=== PATIENT | male | born 1990 | race African-American/Black ===

== ENCOUNTER 2023-10-21 10:13 | Outpatient (AMB) | payer OTHER, SELFPAY ==
[2023-10-21 10:14] VITALS: BP 138/88; PULSE 96; TEMP 37.7; O2SAT 100; BMI 32.9
--- NOTE | 2023-10-21 10:14 | AM.OFFWIN_ITS ---
Intake Vital Signs 10/21/23 10:14 Height 5 ft 7 in Weight 210 lb BMI 32.9 BP 138/88 Blood Pressure Location Rt brachial Position Sitting Pulse 96 Pulse Source Pulse Oximeter Temp 100 F Temp Source Oral Pulse Oximetry (%) 100 Oxygen Delivery Method Room Air Intake Visit Reasons: SUPPLY TECH Head/chest congestion, weak/head throbbing Intake Note: Pt c/o chest congestion, weak and head throbbing with nausea and pain legs pain: started this morning Allergies No Known Allergies Allergy (Verified 10/21/23 10:14) Medication List - Last Reconciled 10/21/23 by Tanesha Matias, OBSTETRICS GYNECOLOGY MD-BC benzonatate 100 mg PO TID PRN 10 days ibuprofen 800 mg PO Q8H PRN ondansetron HCl 4 mg PO Q8H PRN 3 days HPI HPI Comments History of Present Illness Details 33-year-old male here today with flu-lik e symptoms. He reports that he has sudden onset of fever, chills, headache, cough, chest congestion and body aches this morning. He is not taking any medications to try to remedy his symptoms. He also has some mild nausea. He is able to tolerate water. Overall he does feels weak and ill. He denies any known sick contacts. Exam Awake alert, mildly ill-appearing but no acute distress Sclera and conjunctiva clear bilat, no photophobia No nuchal rigidity Nares patent, turbinates within normal limits, no sinus tenderness with palpation bilat TM intact and clear bilat MMM, pharynx WNL RRR LS CTAB, occasional cough noted during exam Plan Swab for flu and COVID. Treat body aches with ibuprofen alternating with Tylenol. [place] hydration and diet as tolerated. Zofran for nausea. Tessalon for cough. If flu positive recommend sending in prescription for Tamiflu. COVID positive he is open to PAXLOVID Ondansteron and APAP given at time of visit to help alleviate Sx. At 1450 pt called with + COVID results; Rx for Paxlovid sent in to pharmacy. This note is constructed using voice recognition software. While every effort has been made to ensure accuracy in public policy manager, still errors may have been included Sometimes, these errors may affect the content or meaning of the given sentence . Total time spent caring for the patient today was 30 minutes. This includes time spent before the visit reviewing the chart, time spent during the visit, and time spent after the visit on documentation Physical Exam Vital Signs: Last Vital Signs Temp 100 F 10/21/23 10:14 Pulse 96 10/21/23 10:14 BP 138/88 10/21/23 10:14 Pulse Ox 100 10/21/23 10:14 Oxygen Delivery Method Room Air 10/21/23 10:14 BMI result Body Mass Index 32.9 Office Meds acetaminophen 325 mg tablet Performing Provider: CRISTELA Fay Performing Location: [facility] Administered by: CRISTELA Fay on 10/21/23 11:10 Dose Route Admin Location Dispensed Lot Number Expiration Date [facility] [employer] 325 mg PO 325 mg [id number] 10/14/25 0373-9046-28 [employer] ondansetron 4 mg disintegrating tablet Performing Provider: CRISTELA Fay Performing Location: [facility] Administered by: CRISTELA Fay on 10/21/23 11:10 Dose Route Admin Location Dispensed Lot Number Expiration Date [facility] [employer] 4 mg translingual 1 tab [id number] 10/14/26 [employer] Results Reviewed Results Reviewed: [facility] [address] [place] [id number] [employer] Supervisor: Slim Trevino M.D. Specimen Inquiry Name: Daniel Dahlah Guy Age/Sex: 33/M : 1990 Unit#: [id number] Attend Dr: Tanesha Matias Re10/21/23 Status: REG REF Location: [facility] Disch: SPEC : [id number] ARSENIO: 10/21/23-1013 STATUS: COMP REQ : [id number] RECD: 10/21/[address] [facility] [address]: Tanesha Matias [facility]- COMP: 10/21/23 ENTERED: 10/21/23 [facility] DR: ORDERED: SARS/FLU/RSV Test Result Flag Reference Influenza A PCR NEGATIVE Negative Influenza B PCR NEGATIVE Negative RSV RNA QualPCR NEGATIVE Negative SARSCOV2 RT-PCR POSITIVE A Negative All test results must be correlated with clinical findings. Negative results do not preclude SARS-CoV2, influenza A virus, influenza B virus and/or RSV infection and should not be used as the sole basis for treatment or other patient management decisions. Negative results must be combined with clinical observations, patient history, and epidemiological information. This test has not been evaluated for monitoring treatment of infection. This test has been authorized by the FDA under an Emergency Use Authorization (EUA) for use by authorized labo ratories. Testing performed on the [employer] GeneXpert utilizing real-time RT-PCR. All SARS CoV2 and positive influenza A/B results are reported to [facility]. END OF REPORT Assessment & Plan Assessment & Plan (1) Flu-like symptoms: Code(s): R68.89 - Other general symptoms and signs (2) Nausea: Code(s): R11.0 - Nausea (3) COVID-19: Code(s): U07.1 - COVID-19 Plan: . Plan . Orders: Orders AMB Ondansetron Adult Dose Today R11.0 - Nausea SARS-CoV2/FLU/RSV Today R09.89 - Other specified symptoms and signs involving the circulatory and respiratory systems AMB Acetaminophen Adult Dose Today R68.89 - Other general symptoms and signs Medications: New benzonatate 100 mg PO TID 10 days PRN 30 caps 1RF cough ondansetron HCl 4 mg PO Q8H 3 days PRN 15 tabs 0RF nausea and vomiting nirmatrelvir-ritonavir 300 mg (150 mg x 2)-100 mg (Paxlovid) take TWO 150 mg tablets of nirmatrelvir with ONE 100 mg tablet of ritonavir twice daily for 5 days PO 30 ea 0RF ibuprofen 800 mg PO Q8H PRN 30 tabs 0RF pain or fever Patient Instructions: Isolation and Precautions for People with COVID-19 Updated June 23, 2022 If you were exposed to COVID-19, you should start taking precautions. Isolation and Exposure If you have COVID-19, you can spread the virus to others. There are precautions you can take to prevent spreading it to others: isolation, masking, and avoiding contact with people who are at high risk of getting very sick. Isolation is used to separate people with confirmed or suspected COVID-19 from those without COVID-19. These recommendations do not change based on COVID-19 hospital admission levels. If you have COVID-19, also see additional information on treatments that may be available to you. This information is intended for a general audience. Healthcare professionals should see Ending Isolation and Precautions for People with COVID-19. This [facility] g uidance is meant to supplement?not replace?any federal, state, local, territorial, or [place] health and safety laws, rules, and regulations. For Healthcare Professionals: Ending Isolation and Precautions for People with COVID-19 When to Isolate Regardless of vaccination status, you should isolate from others when you have COVID-19. You should also isolate if you are sick and suspect that you have COVID-19 but do not yet have test results. If your results are positive, follow the full isolation recommendations below. If your results are negative, you can end your isolation. IF YOU TEST Negative You can end your isolation IF YOU TEST Positive Follow the full isolation recommendations below When you have COVID-19, isolation is counted in days, as follows: If you had no symptoms Day 0 is the day you were tested (not the day you received your positive test result) Day 1 is the first full day following the day you were tested If you develop symptoms within 10 days of when you were tested, the clock restarts at day 0 on the day of symptom onset If you had symptoms Day 0 of isolation is the day of symptom onset, regardless of when you tested positive Day 1 is the first full day after the day your symptoms started Isolation If you test positive for COVID-19, stay home for at least 5 days and isolate from others in your home. You are likely most infectious during these first 5 days. Wear a high-quality mask if you must be around others at home and in public. Do not go places where you are unable to wear a mask. For travel guidance, see CDC?s Travel webpage. Do not travel. Stay home and separate from others as much as possible. Use a separate bathroom, if possible. Take steps to improve ventilation at home, if possible. Don?t share personal household items, like cups, towels, and utensils. Monitor your symptoms. If you have an emergency warning sign (like trouble breathing), seek emergency medical care immediately. Learn more about what to do if you have COVID-19. Ending Isolation End isolation based on how serious your COVID-19 symptoms were. Loss of taste and smell may persist for weeks or months after recovery and need not delay the end of isolation. If you had no symptoms You may end isolation after day 5. If you had symptoms and: Your symptoms are improving You may end isolation after day 5 if: You are fever-free for 24 hours (without the use of fever-reducing medication). Your symptoms are not improving Continue to isolate until: You are fever-free for 24 hours (without the use of fever-reducing medication). Your symptoms are improving. 1 If you had symptoms and had: Moderate illness (you experienced shortness of breath or had difficulty breathing) You need to isolate through day 10. Severe illness (you were hospitalized) or have a weakened immune system You need to isolate through day 10. Consult your doctor before ending isolation. Ending isolation without a viral test may not be an option for you. If you are unsure if your symptoms are moderate or severe or if you have a weakened immune system, talk to a healthcare provider for further guidance. Regardless of when you end isolation Until at least day 11: Avoid being around people who are more likely to get very sick from COVID-19. Remember to wear a high-quality mask when indoors around others at home and in public. Do not go places where you are unable to wear a mask until you are able to discontinue masking (see below). For travel guidance, see CDC?s Travel webpage. Removing Your Mask After you have ended isolation, when you are feeling better (no fever without the use of fever-reducing medications and symptoms improving), Wear your mask through day 10. OR If you have access to antigen tests, you should consider using them. With two sequential negative tests 48 hours apart, you may remove your mask sooner than day 10. Note: If your antigen test results1 are positive, you may still be infectious. You should continue wearing a mask and wait at least 48 hours before taking another test. Continue taking antigen tests at least 48 hours apart until you have two sequential negative results. This may mean you need to continue wearing a mask and testing beyond day 10. After you have ended isolation, if your COVID-19 symptoms recur or worsen, restart your isolation at day 0. Talk to a healthcare provider if you have questions about your symptoms or when to end isolation. [1] As noted in the Food and Drug Administration labeling for authorized txux-sdr-eivarmx antigen tests, negative test results do not rule out SARS-CoV-2 infection and should not be used as the sole basis for treatment or patient management decisions, including infection control decisions. Last Updated June 23, 2022 Coding Level of Care Code Est Pt Level 4 (85918) Diagnoses Flu-like symptoms R68.89 Nausea R11.0 COVID-19 U07.1
== END 2023-10-21 10:41 | disposition home or self-care (01) ==
PROVIDERS: Visit Provider Nurse Practitioner Family
DX: R11.0 Nausea (principal); U07.1 COVID-19; R68.89 Other general symptoms and signs
CPT/HCPCS: 99051; 99214

== ENCOUNTER 2023-10-21 13:23 | Outpatient (REF) | payer OTHER, SELFPAY ==
[2023-10-21 14:31] LABS: Influenza A PCR NEGATIVE (Negative); Influenza B PCR NEGATIVE (Negative); Resp Syncy Virus RNA Qual PCR NEGATIVE (Negative); SARS COV2 PCR INHOUSE POSITIVE (Negative)
== END 2023-10-21 13:24 | disposition home or self-care (01) ==
LOC: HO.HMGCLNP 13:23
PROVIDERS: Visit Provider Nurse Practitioner Family
DX: J11.1 Influenza due to unidentified influenza virus with other respiratory manifestations (principal); Z11.52 Encounter for screening for COVID-19
CPT/HCPCS: 0241U